=== PATIENT | female | born 1970 | race Caucasian/White ===

== ENCOUNTER → 2016-09-27 | Outpatient (CLI) | payer OTHER | LOC: FIMAGING 11:33 | DX: Z12.31 Encounter for screening mammogram for malignant neoplasm of breast (principal) | CPT/HCPCS: G0202 ==

== ENCOUNTER 2017-03-29 09:28 | Emergency (ER) | payer OTHER ==
[2017-03-29 09:34] VITALS: O2SAT 98
[2017-03-29] MEDS ORDERED: TDAP ADULT 0.5 ML INJ (BOOSTRIX) IM ONE (09:54)
[2017-03-29] MEDS ORDERED: IBUPROFEN 600 MG TAB PO ONE (10:13)
--- NOTE | 2017-03-29 10:26 | EDPHY ---
General Narrative: CHIEF COMPLAINT: Foot puncture HISTORY OF PRESENT ILLNESS: Patient was walking outside of her home today when she accidentally stepped on a railroad tie with a metal spike in it. This punctured through her shoe, her sock and into the bottom of her left foot. This happened within the past hour. It is moderately to severely painful with pressure and ambulation. Minimally painful at rest. Some bleeding. She feels as though there might be something in there as she had to pull forcefully to get the nail out. No pain elsewhere. Tetanus was updated as of 2008. No other associated complaints or modifying factors. REVIEW OF SYSTEMS: Ten systems reviewed and are negative unless otherwise noted in the HPI PCP: Dr. Nicholsa SPECIALISTS: None PAST MEDICAL HISTORY: No medical history PAST SURGICAL HISTORY: None SOCIAL HISTORY[place] Works as a bed teacher at [employer] FAMILY HISTORY: Noncontributory EXAMINATION General Appearance: Alert, no distress Head: normocephalic, atraumatic Cardiovascular: Regular rate. Symmetric DP and PT pulses 2+ Neurological: A&O, nonfocal, antalgic but steady gait. Strength is symmetric in lower extremities. Skin: Warm and dry, no rash. There is a puncture wound to the plantar surface of the left foot. Approximately 1 cm in diameter. Mild bleeding. No pulsatile bleeding. No surrounding bleeding, ecchymosis or cellulitis. Extremities: Tenderness in the plantar surface of the left foot. No tenderness of the mid foot or heel. Range of motion is intact and symmetric. Neurovascular intact in the dorsum and distally Psychiatric: Mood and affect normal DIFFERENTIAL DIAGNOSES: Including but not limited to puncture wound, fracture, foreign body MDM: 10:20 a.m. Puncture wound to the plantar surface of the left foot from a nail. Her tetanus is updated in 2008. The wound is bleeding minimally. I have administered lidocaine to the site so that we may irrigated appropriately. I have ordered an x-ray to rule out fracture or foreign body. She is neurovascular intact. 11:15 a.m. Patient re-evaluated. The wound has been anesthetized and irrigated with Betadine and saline. X-ray has been performed. As read by me, there are no foreign bodies and no fractures. There may be air in the fascial plane. She is feeling well and ambulating without difficulty. Discharged home with ciprofloxacin prophylaxis. I discussed in detail the risks of ciprofloxacin, namely the risk for Achilles tendon injury. We discussed refraining from her normal tennis active for 2-3 weeks. She is comfortable this plan and comfortable with assuming the risk. ED precautions discussed. I would like her to be seen by primary care physician later next week. She is comfortable this plan and discharged home stable condition - History Smoking Status: Never smoked - Objective Vital Signs: Initial Vital Signs Temperature (C) 97.9 F 03/29/17 09:32 Heart Rate 89 03/29/17 09:32 Respiratory Rate 20 03/29/17 09:32 Blood Pressure 151/83 H 03/29/17 09:32 O2 Sat (%) 98 03/29/17 09:32 O2 Delivery Mode Room Air Allergies/Adverse Reactions: bacitracin [From Neosporin ([id number])] Allergy (Verified 03/29/17 09:32) miconazole [From Neosporin AF] Allergy (Verified 03/29/17 09:32) neomycin [From Neosporin ([id number])] Allergy (Verified 03/29/17 09:32) polymyxin B [From Neosporin ([id number])] Allergy (Verified 03/29/17 09:32) Home Medications: Medication Instructions Recorded Ciprofloxacin [Cipro] 500 mg PO BID #20 tab 03/29/17 Medications Given: Discontinued Medications Diphtheria/Tetanus/Acell Pertussis (Boostrix) 0.5 ml IM .ONCE ONE Stop: 03/29/17 09:55 Last Admin: 03/29/17 10:13 Dose: Not Given Ibuprofen (Motrin) 600 mg PO EDNOW ONE Stop: 03/29/17 10:14 Last Admin: 03/29/17 10:17 Dose: 600 mg Departure - Departure Disposition: Home, Routine, Self-Care Clinical Impression: Puncture wound of left foot excluding toes without complication Qualifiers: Encounter type: initial encounter Qualified Code(s): S91.332A - Puncture wound without foreign body, left foot, initial encounter Condition: Good Instructions: Puncture Wound (ED) Referrals: Yamile Nicholas MD [Primary Care Provider] - As per Instructions Prescriptions: Ciprofloxacin [Cipro] 500 mg PO BID #20 tab
[2017-03-29 11:21] VITALS: BP 148/80; PULSE 86; RESP 16; TEMP 97.7
== END 2017-03-29 11:21 | disposition home or self-care (01) ==
DX: S91.332A Puncture wound without foreign body, left foot, initial encounter (principal); W45.0XXA Nail entering through skin, initial encounter; Y92.009 Unspecified place in unspecified non-institutional (private) residence as the place of occurrence of the external cause; Y99.8 Other external cause status; Y93.01 Activity, walking, marching and hiking

== ENCOUNTER → 2017-10-02 | Outpatient (CLI) | payer OTHER | LOC: FIMAGING 10:12 | PROVIDERS: ATTEND Obstetrics & Gynecology | DX: Z12.31 Encounter for screening mammogram for malignant neoplasm of breast (principal) ==

== ENCOUNTER 2017-10-13 18:56 | Emergency (ER) | payer OTHER ==
[2017-10-13 19:30] VITALS: BP 132/104
[2017-10-13] MEDS ORDERED: SKIN ADHESIVE (DERMABOND) 1 EACH TP ONE (19:39)
--- NOTE | 2017-10-13 19:40 | EDPHY ---
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 No loss of consciousness. No visual acuity changes. No abnormal gaze. No diplopia. PHYSICAL EXAM 1) GENERAL: Well-developed, well-nourished, alert and oriented. Appears to be in no acute distress. Answering questions appropriately. 2) HEAD: Normocephalic, atraumatic 3) HEENT: Pupils equal, round, reactive to light bilaterally. Left lateral inferior eyebrow laceration measuring 1.5 cm, linear, superficial, well demarcated. Negative Horners. Nasopharynx, oropharynx, clear. No deformity or angulation of nose. No septal hematoma. No rhinorrhea. No oral trauma. No raccoon eyes. No Jose sign. Smoking Status: Never smoked Constitutional: Initial Vital Signs Temperature (C) 36.4 C 10/13/17 19:16 Heart Rate 69 10/13/17 19:16 Respiratory Rate 16 10/13/17 19:16 Blood Pressure 142/92 H 10/13/17 19:16 O2 Sat (%) 98 10/13/17 19:16 O2 Delivery Mode Room Air Allergies/Adverse Reactions: bacitracin [From Neosporin ([id number])] Allergy (Verified 03/29/17 09:32) miconazole [From Neosporin AF] Allergy (Verified 03/29/17 09:32) neomycin [From Neosporin ([id number])] Allergy (Verified 03/29/17 09:32) polymyxin B [From Neosporin ([id number])] Allergy (Verified 03/29/17 09:32) Home Medications: Medication Instructions Recorded NK [No Known Home Meds] 10/13/17 MDM/Departure - MDM Procedures: Procedure: Laceration repair with tissue adhesive Verbal consent was obtained from the patient. The 1.5 cm laceration on the left eyebrow region. The wound was scrubbed and explored to its base with a gloved finger. No foreign body seen, no foreign bodies palpated. There were no deep structures involved. The wound was repaired with tissue adhesive. The procedure was performed by myself. Patient has been informed that scarring will occur, although every effort has been made to minimize this. ED Course/Re-evaluation: Care of patient under supervision of secondary supervising physician Dr Chandler . - Depart Disposition: Home, Routine, Self-Care Clinical Impression: Laceration of eyebrow, left Qualifiers: Encounter type: initial encounter Qualified Code(s): S01.112A - Laceration without foreign body of left eyelid and periocular area, initial encounter Condition: Good Instructions: Laceration (ED) Additional Instructions: Return to the ER if you develop redness, swelling, discharge, warmth to the wound, or any other symptoms that concern you. Referrals: Yamile Nicholas MD [Primary Care Provider] - As per Instructions
== END 2017-10-13 19:52 | disposition home or self-care (01) ==
PROC: 08QPXZZ Repair Left Upper Eyelid, External Approach (ICD-10-PCS; principal; 2017-10-13)
DX: S01.112A Laceration without foreign body of left eyelid and periocular area, initial encounter (principal); W26.8XXA Contact with other sharp object(s), not elsewhere classified, initial encounter; Y99.8 Other external cause status; Y93.89 Activity, other specified

== ENCOUNTER → 2017-10-16 | Outpatient (CLI) | payer OTHER | LOC: FIMAGING 09:27 | PROVIDERS: ATTEND Obstetrics & Gynecology | DX: R92.8 Other abnormal and inconclusive findings on diagnostic imaging of breast (principal) ==

== ENCOUNTER → 2018-10-10 | Outpatient (CLI) | payer OTHER | LOC: FIMAGING 11:34 | PROVIDERS: ATTEND Obstetrics & Gynecology | DX: Z12.31 Encounter for screening mammogram for malignant neoplasm of breast (principal) ==